=== PATIENT | female | born 1980 | race Caucasian/White ===

== ENCOUNTER 2018-12-04 08:53 | Day surgery (SDC) | payer OTHER ==
[~2018-12-04 08:53] MED LIST: CEFAZOLIN 2 GM/50 ML (PMX) 50 ML IVPB
[2018-12-04] MEDS ORDERED: HYDROmorphONE 1 MG/5 ML IV SYRINGE IV ×3 (11:00)
[2018-12-04] MEDS ORDERED: MIDAZOLAM 1 MG/ML 2 ML INJ (11:42)
[2018-12-04] MEDS ORDERED: FENTAnyl 50 MCG/ML VIAL (11:42)
[2018-12-04] MEDS: BUPIVACAINE 0.5% (SDV) 30 ML INJ (11:52)
[2018-12-04] MEDS: LIDOCAINE 2% (MDV) 20 ML INJ (11:52)
[2018-12-04] MEDS ORDERED: HYDROCODONE/APAP (5/325) TAB PO (12:30)
[2018-12-04] MEDS ORDERED: SOD CHLORIDE 0.9% 1,000 ML IV (16:30)
== END 2018-12-04 13:00 | disposition home or self-care (01) ==
LOC: SDS 08:53
DX: D24.2 Benign neoplasm of left breast (principal); I10 Essential (primary) hypertension; J45.909 Unspecified asthma, uncomplicated; F41.9 Anxiety disorder, unspecified
CPT/HCPCS: 14000; 88307